=== PATIENT | female | born 1965 | race Caucasian/White ===

== ENCOUNTER 2019-05-19 13:42 | Emergency (ER) | payer MEDICAID, OTHER ==
[~2019-05-19] VITALS: Ht 167.6 cm; Wt 70.5 kg
[2019-05-19 13:45] VITALS: BP 120/70
[2019-05-19] MEDS ORDERED: ketorolac tromethamine 15mg/ml inj. IM ONE (15:00)
[2019-05-19] MEDS ORDERED: orphenadrine citrate 60mg/2ml inj. IM ONE (15:00)
[2019-05-19] MEDS ORDERED: METH-360 PO (15:34)
== END 2019-05-19 15:48 | disposition home or self-care (01) ==
LOC: ER 13:42
DX: S96.812A Strain of other specified muscles and tendons at ankle and foot level, left foot, initial encounter (principal); S80.01XA Contusion of right knee, initial encounter; G89.29 Other chronic pain; Z91.013 Allergy to seafood; Z88.1 Allergy status to other antibiotic agents; Z79.899 Other long term (current) drug therapy; Z98.890 Other specified postprocedural states; W10.8XXA Fall (on) (from) other stairs and steps, initial encounter; Y93.89 Activity, other specified; Y92.89 Other specified places as the place of occurrence of the external cause; Y99.8 Other external cause status
CPT/HCPCS: 73610; 73630; 96372; 99283; J1885

== ENCOUNTER 2019-06-25 10:33 | Emergency (ER) | payer MEDICAID ==
[~2019-06-25] VITALS: Ht 167.6 cm; Wt 75.0 kg
[~2019-06-25 10:33] MED LIST: METH-360 PO
[2019-06-25 10:39] VITALS: BP 122/74
--- NOTE | 2019-06-25 11:29 | NUR ---
pt given ice pack for right knee pain.
== END 2019-06-25 12:52 | disposition home or self-care (01) ==
LOC: ER 10:34
DX: M25.461 Effusion, right knee (principal); M25.572 Pain in left ankle and joints of left foot; G89.29 Other chronic pain; Z98.890 Other specified postprocedural states; Z91.013 Allergy to seafood; Z88.1 Allergy status to other antibiotic agents; Z88.5 Allergy status to narcotic agent; Z91.048 Other nonmedicinal substance allergy status
CPT/HCPCS: 73564; 99283

== ENCOUNTER 2019-09-13 11:24 | Emergency (ER) | payer MEDICAID ==
[~2019-09-13] VITALS: Ht 167.6 cm; Wt 75.0 kg
--- NOTE | 2019-09-13 12:11 | NUR ---
Lab at bedside.
[2019-09-13 12:41] LABS: ALANINE AMINOTRANSFERASE 10 U/L (12-78); ALBUMIN 3.7 G/DL (3.4-5.0); ALBUMIN/GLOBULIN RATIO 1.2 (1.1-1.5); ALKALINE PHOSPHATASE 77 IU/L (46-116); AMYLASE 38 U/L (25-115); ANION GAP 6 (8-16); ASPARTATE AMINO TRANSFERASE 18 U/L (10-37); BASOPHILS # (AUTO) 0.1 X10'3 (0-0.2); BILIRUBIN,TOTAL 0.4 MG/DL (0.1-1.0); BLOOD UREA NITROGEN 14 MG/DL (7-18); BUN/CREATININE RATIO 23.7 (6.6-38.0); CALCIUM 8.8 MG/DL (8.5-10.1); CHLORIDE 107 MMOL/L (99-107); CREATININE 0.59 MG/DL (0.40-0.90); EOSINOPHILS # (AUTO) 0.2 X10'3 (0-0.9); EOSINOPHILS % (AUTO) 3.1 % (0-6); GLUCOSE 93 MG/DL (70-104); HEMATOCRIT 46.2 % (35.0-45.0); HEMOGLOBIN 15.9 g/dl (12.0-16.0); LIPASE 105 U/L (73-393); LYMPHOCYTES # (AUTO) 1.5 X10'3 (1.1-4.8); LYMPHOCYTES % (AUTO) 29.5 % (21-51); MEAN CORPUSCULAR HEMOGLOBIN 31.2 PG (27.0-31.0); MEAN CORPUSCULAR HGB CONC 34.3 g/dL (33.0-36.5); MONOCYTES # (AUTO) 0.3 X10'3 (0-0.9); MONOCYTES % (AUTO) 6.8 % (2-12); NEUTROPHILS % (AUTO) 59.6 % (42-75); PLATELET COUNT 175 X10'3 (140-440); POTASSIUM 4.2 MMOL/L (3.5-5.1); RED BLOOD COUNT 5.08 X10'6 (4.20-5.60); RED CELL DISTRIBUTION WIDTH 13.8 % (11.5-14.5); SODIUM 140 MMOL/L (135-145); TOTAL CARBON DIOXIDE 26.7 MMOL/L (24-32); TOTAL PROTEIN 6.7 G/DL (6.4-8.2); eGFR > 90 ML/MIN
--- NOTE | 2019-09-13 12:57 | NUR ---
Pt to restroom to provide sample.
[2019-09-13 13:26] LABS: CLARITY,URINE SLIGHTLY CLOUDY (Clear); COLOR,URINE YELLOW (Yellow); GLUCOSE, URINE NEGATIVE (Neg); KETONES,URINE NEGATIVE (Neg); LEUKOCYTE ESTERASE ,URINE NEGATIVE (Neg); NITRITES, URINE NEGATIVE (Neg); OCCULT BLOOD,URINE NEGATIVE (Neg); PROTEIN,URINE NEGATIVE (Neg); UROBILINOGEN,URINE 0.2 E.U/dL (0.2-1.0)
[2019-09-13 13:28] LABS: URINE HCG NEGATIVE (NEG)
[2019-09-13 13:47] LABS: BACTERIA,URINE NONE SEEN /HPF (Neg); MUCUS STRANDS FEW /LPF (Neg); RBC,URINE 0-2 /HPF (0-2); SQUAMOUS EPITHELIAL CELL,UR MANY /LPF (FEW); UA COLLECTION TYPE CLN CATCH MIDSTREAM; WBC,URINE 0-4 /HPF (0-4)
[2019-09-13] MEDS ORDERED: ondansetron/PF 4mg/2ml inj IV ONE (13:50)
[2019-09-13] MEDS ORDERED: normal saline 1000ML IV soln IVB ONE (13:50)
[2019-09-13] MEDS ORDERED: pantoprazole 40 MG vial IV ONE (14:45)
[2019-09-13] MEDS ORDERED: famotidine/PF 10 mg/ml inj IV ONE (14:45)
[2019-09-13] MEDS ORDERED: ONDA4TAB6 PO (15:50)
[2019-09-13] MEDS ORDERED: OMEP20CA11 PO (15:50)
[2019-09-13 16:10] VITALS: BP 123/85
== END 2019-09-13 16:11 | disposition home or self-care (01) ==
LOC: ER 11:24
DX: K52.9 Noninfective gastroenteritis and colitis, unspecified (principal); R10.10 Upper abdominal pain, unspecified; R11.2 Nausea with vomiting, unspecified; G89.29 Other chronic pain; Z91.013 Allergy to seafood; Z88.1 Allergy status to other antibiotic agents; Z88.5 Allergy status to narcotic agent
CPT/HCPCS: 36415; 74177; 76700; 80053; 81001; 81025; 82150; 83690; 85025; 96361; 96374; 96375; 99284; C9113; J2405; J3490; J7030

== ENCOUNTER 2020-04-06 09:52 | Emergency (ER) | payer MEDICAID ==
[~2020-04-06] VITALS: Ht 167.6 cm; Wt 85.5 kg
[~2020-04-06 09:52] MED LIST changes: +OMEP20CA15 PO; +ONDA4TAB6 PO
[2020-04-06] MEDS ORDERED: AMOX-115 PO (10:29)
[2020-04-06] MEDS ORDERED: PRED20TA PO (10:29)
[2020-04-06 11:19] VITALS: BP 133/84
== END 2020-04-06 11:23 | disposition home or self-care (01) ==
LOC: ER 09:52
DX: J01.10 Acute frontal sinusitis, unspecified (principal); G89.29 Other chronic pain; Z98.890 Other specified postprocedural states; Z91.013 Allergy to seafood; Z88.1 Allergy status to other antibiotic agents; Z91.048 Other nonmedicinal substance allergy status; Z88.5 Allergy status to narcotic agent; Z79.2 Long term (current) use of antibiotics; Z79.899 Other long term (current) drug therapy
CPT/HCPCS: 99284

== ENCOUNTER 2020-04-19 13:17 | Emergency (ER) | payer MEDICAID ==
[~2020-04-19] VITALS: Ht 165.1 cm; Wt 80.0 kg
[2020-04-19] MEDS ORDERED: normal saline 1000ML IV soln IVB ONE (14:05)
[2020-04-19 14:24] LABS: BASOPHILS % (AUTO) 0.6 % (0-1); EOSINOPHILS # (AUTO) 0.2 X10'3 (0-0.9); EOSINOPHILS % (AUTO) 2.8 % (0-6); HEMATOCRIT 45.5 % (35.0-45.0); HEMOGLOBIN 15.4 g/dl (12.0-16.0); LYMPHOCYTES # (AUTO) 1.9 X10'3 (1.1-4.8); LYMPHOCYTES % (AUTO) 26.9 % (21-51); MEAN CORPUSCULAR HEMOGLOBIN 30.5 PG (27.0-31.0); MEAN CORPUSCULAR HGB CONC 33.9 g/dL (33.0-36.5); MEAN CORPUSCULAR VOLUME 89.9 FL (78-98); MEAN PLATELET VOLUME 8.3 FL (7.4-10.4); MONOCYTES # (AUTO) 0.4 X10'3 (0-0.9); MONOCYTES % (AUTO) 5.8 % (2-12); NEUTROPHILS # (AUTO) 4.6 X10'3 (1.8-7.7); NEUTROPHILS % (AUTO) 63.9 % (42-75); PLATELET COUNT 207 X10'3 (140-440); RED BLOOD COUNT 5.07 X10'6 (4.20-5.60); RED CELL DISTRIBUTION WIDTH 13.9 % (11.5-14.5); WHITE BLOOD COUNT 7.2 X10'3 (4.5-11.0)
[2020-04-19 14:43] LABS: ALANINE AMINOTRANSFERASE 25 U/L (12-78); ALBUMIN 3.7 G/DL (3.4-5.0); ALBUMIN/GLOBULIN RATIO 1.3 (1.1-1.5); ALKALINE PHOSPHATASE 81 IU/L (46-116); ANION GAP 8 (8-16); ASPARTATE AMINO TRANSFERASE 20 U/L (10-37); BILIRUBIN,TOTAL 0.6 MG/DL (0.1-1.0); BLOOD UREA NITROGEN 10 MG/DL (7-18); BUN/CREATININE RATIO 15.4 (6.6-38.0); C-REACTIVE PROTEIN 0.41 MG/DL (0.0-0.5); CALCIUM 9.1 MG/DL (8.5-10.1); CHLORIDE 108 MMOL/L (99-107); CREATININE 0.65 MG/DL (0.40-0.90); GLUCOSE 103 MG/DL (70-104); LIPASE 101 U/L (73-393); MAGNESIUM 1.9 MG/DL (1.5-2.4); POTASSIUM 4.4 MMOL/L (3.5-5.1); SODIUM 143 MMOL/L (135-145); TOTAL PROTEIN 6.6 G/DL (6.4-8.2); eGFR > 90 ML/MIN
[2020-04-19 14:46] LABS: CLARITY,URINE CLEAR (Clear); COLOR,URINE STRAW (Yellow); GLUCOSE, URINE NEGATIVE (Neg); KETONES,URINE NEGATIVE (Neg); LEUKOCYTE ESTERASE ,URINE NEGATIVE (Neg); NITRITES, URINE NEGATIVE (Neg); OCCULT BLOOD,URINE NEGATIVE (Neg); PH,URINE 7.5 (4.8-8.0); PROTEIN,URINE NEGATIVE (Neg); UROBILINOGEN,URINE 0.2 E.U/dL (0.2-1.0)
[2020-04-19 14:47] LABS: UA COLLECTION TYPE CLN CATCH MIDSTREAM
[2020-04-19 15:29] VITALS: BP 120/72
== END 2020-04-19 15:31 | disposition home or self-care (01) ==
LOC: ER 13:17
DX: R19.7 Diarrhea, unspecified (principal); R53.1 Weakness; R42 Dizziness and giddiness; G89.29 Other chronic pain; Z98.890 Other specified postprocedural states; Z91.013 Allergy to seafood; Z88.2 Allergy status to sulfonamides; Z91.048 Other nonmedicinal substance allergy status; Z88.5 Allergy status to narcotic agent; Z79.899 Other long term (current) drug therapy
CPT/HCPCS: 36415; 80053; 81003; 83690; 83735; 85025; 86140; 93005; 96360; 99284; J7030

== ENCOUNTER 2020-07-01 09:50 | Emergency (ER) | payer MEDICAID ==
[~2020-07-01] VITALS: Ht 167.6 cm; Wt 75.0 kg
--- NOTE | 2020-07-01 10:05 | NUR ---
ON L-TYRAZINE TID TO HELP SYMPTOMS WHILE TAKING IT.
--- NOTE | 2020-07-01 11:49 | NUR ---
Donavan beth in [facility] - 07/01/20 at 1150 by ELSY PT UP OUT OF BED, AMBULATED TO THE BATHROOM WITH STEADY GAIT.
--- NOTE | 2020-07-01 11:49 | NUR ---
PT UP OUT OF BED, AMBULATED TO THE BATHROOM WITH STEADY GAIT.
--- NOTE | 2020-07-01 11:50 | NUR ---
PT UP OUT OF BED AND ABBLUATED TO THEBATHROOM WITH A STEADY GAIT.
[2020-07-01] MEDS ORDERED: meclizine 12.5mg tablet PO ONE (12:45)
[2020-07-01] MEDS ORDERED: ondansetron 4mg rapidly disintigrating tab PO ONE (12:45)
[2020-07-01] MEDS ORDERED: ONDA4TAB6 PO (13:15)
[2020-07-01] MEDS ORDERED: MECL-159 PO (13:15)
[2020-07-01] MEDS ORDERED: AMOX-117 PO (13:28)
[2020-07-01 13:46] VITALS: BP 123/63
== END 2020-07-01 13:49 | disposition home or self-care (01) ==
LOC: ER 09:50
DX: R42 Dizziness and giddiness (principal); H70.892 Other mastoiditis and related conditions, left ear; R53.83 Other fatigue; R11.0 Nausea; G89.29 Other chronic pain; Z98.890 Other specified postprocedural states; Z88.1 Allergy status to other antibiotic agents; Z88.8 Allergy status to other drugs, medicaments and biological substances; Z91.013 Allergy to seafood; Z79.2 Long term (current) use of antibiotics; Z79.899 Other long term (current) drug therapy
CPT/HCPCS: 70450; 99285; J8597; 93005

== ENCOUNTER 2020-09-10 10:13 | Emergency (ER) | payer MEDICAID ==
[~2020-09-10] VITALS: Ht 167.6 cm; Wt 77.3 kg
[~2020-09-10 10:13] MED LIST changes: +MECL-159 PO
[2020-09-10 11:10] LABS: BASOPHILS # (AUTO) 0.1 X10'3 (0-0.2); BASOPHILS % (AUTO) 1.3 % (0-1); EOSINOPHILS # (AUTO) 0.2 X10'3 (0-0.9); EOSINOPHILS % (AUTO) 4.1 % (0-6); HEMATOCRIT 47.6 % (35.0-45.0); HEMOGLOBIN 16.6 g/dl (12.0-16.0); LYMPHOCYTES # (AUTO) 1.7 X10'3 (1.1-4.8); LYMPHOCYTES % (AUTO) 32.5 % (21-51); MEAN CORPUSCULAR HEMOGLOBIN 31.8 PG (27.0-31.0); MEAN CORPUSCULAR HGB CONC 34.9 g/dL (33.0-36.5); MEAN CORPUSCULAR VOLUME 91.1 FL (78-98); MEAN PLATELET VOLUME 8.8 FL (7.4-10.4); MONOCYTES # (AUTO) 0.3 X10'3 (0-0.9); MONOCYTES % (AUTO) 6.6 % (2-12); NEUTROPHILS # (AUTO) 2.8 X10'3 (1.8-7.7); NEUTROPHILS % (AUTO) 55.5 % (42-75); PLATELET COUNT 203 X10'3 (140-440); RED BLOOD COUNT 5.22 X10'6 (4.20-5.60); RED CELL DISTRIBUTION WIDTH 13.7 % (11.5-14.5); WHITE BLOOD COUNT 5.1 X10'3 (4.5-11.0)
[2020-09-10 11:20] LABS: ANION GAP 4 (8-16); CHLORIDE 108 MMOL/L (99-107); POTASSIUM 4.5 MMOL/L (3.5-5.1); SODIUM 142 MMOL/L (135-145)
[2020-09-10 11:28] LABS: ALANINE AMINOTRANSFERASE 22 U/L (12-78); ALBUMIN 4.1 G/DL (3.4-5.0); ALBUMIN/GLOBULIN RATIO 1.3 (1.1-1.5); ALKALINE PHOSPHATASE 81 IU/L (46-116); ASPARTATE AMINO TRANSFERASE 20 U/L (10-37); BILIRUBIN,TOTAL 0.6 MG/DL (0.1-1.0); BLOOD UREA NITROGEN 11 MG/DL (7-18); BUN/CREATININE RATIO 18.6 (6.6-38.0); CALCIUM 9.4 MG/DL (8.5-10.1); CREATININE 0.59 MG/DL (0.40-0.90); GLUCOSE 88 MG/DL (70-104); LIPASE 94 U/L (73-393); TOTAL PROTEIN 7.2 G/DL (6.4-8.2); eGFR > 90 ML/MIN
[2020-09-10] MEDS ORDERED: ondansetron/PF 4mg/2ml inj IV ONE (11:30)
[2020-09-10] MEDS ORDERED: normal saline 1000ML IV soln IVB ONE ×2 (11:30)
[2020-09-10 12:07] LABS: CLARITY,URINE CLEAR (Clear); COLOR,URINE YELLOW (Yellow); GLUCOSE, URINE NEGATIVE (Neg); KETONES,URINE NEGATIVE (Neg); LEUKOCYTE ESTERASE ,URINE NEGATIVE (Neg); NITRITES, URINE NEGATIVE (Neg); OCCULT BLOOD,URINE NEGATIVE (Neg); PROTEIN,URINE NEGATIVE (Neg); URINE HCG NEGATIVE (NEG); UROBILINOGEN,URINE 0.2 E.U/dL (0.2-1.0)
[2020-09-10 12:08] LABS: UA COLLECTION TYPE CLN CATCH MIDSTREAM
[2020-09-10 13:33] VITALS: BP 105/67
== END 2020-09-10 13:37 | disposition home or self-care (01) ==
LOC: ER 10:14
DX: S63.591A Other specified sprain of right wrist, initial encounter (principal); M25.531 Pain in right wrist; R10.84 Generalized abdominal pain; R11.0 Nausea; R42 Dizziness and giddiness; G89.29 Other chronic pain; Z98.890 Other specified postprocedural states; Z88.1 Allergy status to other antibiotic agents; Z88.8 Allergy status to other drugs, medicaments and biological substances; Z91.013 Allergy to seafood; Z79.899 Other long term (current) drug therapy; X58.XXXA Exposure to other specified factors, initial encounter; Y93.89 Activity, other specified; Y92.89 Other specified places as the place of occurrence of the external cause; Y99.8 Other external cause status
CPT/HCPCS: 36415; 73080; 73090; 73130; 74176; 80053; 81003; 81025; 83690; 85025; 96361; 96374; 99285; J2405; J7030

== ENCOUNTER 2021-02-15 13:20 | Emergency (ER) | payer MEDICAID ==
[~2021-02-15] VITALS: Ht 167.6 cm; Wt 75.9 kg
[2021-02-15] MEDS ORDERED: dexamethasone sod phosphate 10mg/ml inj PO STA (14:39)
[2021-02-15] MEDS ORDERED: AMOX-422 PO (14:41)
[2021-02-15 15:19] VITALS: BP 124/76
== END 2021-02-15 15:21 | disposition home or self-care (01) ==
LOC: ER 13:21
DX: S02.2XXA Fracture of nasal bones, initial encounter for closed fracture (principal); J32.9 Chronic sinusitis, unspecified; G89.29 Other chronic pain; Z87.891 Personal history of nicotine dependence; Z98.890 Other specified postprocedural states; Z91.013 Allergy to seafood; Z88.6 Allergy status to analgesic agent; Z88.5 Allergy status to narcotic agent; Z88.1 Allergy status to other antibiotic agents; Z79.899 Other long term (current) drug therapy; W50.0XXA Accidental hit or strike by another person, initial encounter; Y93.89 Activity, other specified; Y92.89 Other specified places as the place of occurrence of the external cause; Y99.8 Other external cause status
CPT/HCPCS: 99283; J1100

== ENCOUNTER 2021-11-20 11:15 | Emergency (ER) | payer MEDICAID ==
[~2021-11-20] VITALS: Ht 167.6 cm; Wt 77.2 kg
[2021-11-20 11:28] VITALS: BP 101/65
[2021-11-20] MEDS ORDERED: triamcinolone acetonide 40mg/ml inj IM ONE (14:55)
[2021-11-20] MEDS ORDERED: ketorolac trometh. 30mg/ml inj. IM ONE (14:55)
[2021-11-20 15:17] LABS: CLARITY,URINE CLOUDY (Clear); COLOR,URINE YELLOW (Yellow); GLUCOSE, URINE NEGATIVE (Neg); KETONES,URINE NEGATIVE (Neg); LEUKOCYTE ESTERASE ,URINE SMALL (Neg); NITRITES, URINE NEGATIVE (Neg); OCCULT BLOOD,URINE NEGATIVE (Neg); PROTEIN,URINE NEGATIVE (Neg); UROBILINOGEN,URINE 0.2 E.U/dL (0.2-1.0)
[2021-11-20 15:19] LABS: UA COLLECTION TYPE CLN CATCH MIDSTREAM
[2021-11-20 15:23] LABS: BACTERIA,URINE 2+ /HPF (Neg); RBC,URINE 0-2 /HPF (0-2); SQUAMOUS EPITHELIAL CELL,UR MANY /LPF (FEW)
[2021-11-20] MEDS ORDERED: cephalexin 250mg capsule PO ONE (16:05)
[2021-11-20] MEDS ORDERED: CEPH-585 PO (16:57)
== END 2021-11-20 16:16 | disposition home or self-care (01) ==
LOC: ER 11:15
DX: G62.9 Polyneuropathy, unspecified (principal); R51.9 Headache, unspecified; M54.9 Dorsalgia, unspecified; Z87.440 Personal history of urinary (tract) infections; Z98.890 Other specified postprocedural states; Z88.1 Allergy status to other antibiotic agents; Z88.5 Allergy status to narcotic agent; Z88.8 Allergy status to other drugs, medicaments and biological substances; Z91.013 Allergy to seafood
CPT/HCPCS: 81001; 96372; 99284; J1885; J3301

== ENCOUNTER 2022-04-06 15:55 | Emergency (ER) | payer MEDICAID ==
[~2022-04-06] VITALS: Ht 167.6 cm; Wt 77.3 kg
[~2022-04-06 15:55] MED LIST changes: +CEPH-585 PO
[2022-04-06 15:58] VITALS: BP 114/69
[2022-04-06] MEDS ORDERED: AMOX-115 PO (17:02)
[2022-04-06] MEDS ORDERED: predniSONE 20 mg tablet PO ONE (17:05)
== END 2022-04-06 17:29 | disposition home or self-care (01) ==
LOC: ER 15:56
DX: L03.114 Cellulitis of left upper limb (principal); G89.29 Other chronic pain; Z98.890 Other specified postprocedural states; Z88.1 Allergy status to other antibiotic agents; Z91.013 Allergy to seafood; Z88.6 Allergy status to analgesic agent; Z88.5 Allergy status to narcotic agent; Z79.899 Other long term (current) drug therapy
CPT/HCPCS: 99283; J7512

== ENCOUNTER 2023-06-20 13:06 | Emergency (ER) | payer MEDICAID ==
[~2023-06-20] VITALS: Ht 167.6 cm; Wt 85.0 kg
[~2023-06-20 13:06] MED LIST changes: -CEPH-585 PO
[2023-06-20 13:18] VITALS: BP 109/71; PULSE 78; RESP 18; TEMP 97; O2SAT 100
[2023-06-20] MEDS ORDERED: CYCL-1 PO (14:42)
[2023-06-20] MEDS ORDERED: PRED20TA PO (14:42)
== END 2023-06-20 14:55 | disposition home or self-care (01) ==
LOC: ER 13:07
DX: S50.01XA Contusion of right elbow, initial encounter (principal); G89.29 Other chronic pain; M54.9 Dorsalgia, unspecified; Z91.040 Latex allergy status; Z88.1 Allergy status to other antibiotic agents; Z79.899 Other long term (current) drug therapy; X58.XXXA Exposure to other specified factors, initial encounter; Y93.89 Activity, other specified; Y92.89 Other specified places as the place of occurrence of the external cause; Y99.8 Other external cause status
CPT/HCPCS: 73080; 99284